=== PATIENT | female | born 1930 | race Caucasian/White ===

== ENCOUNTER → 2019-06-11 | Outpatient (CLI) | payer MEDICARE, BC ==
[2019-06-12 16:23] LABS: Appearance,Urine Turbid (Clear); Bacteria,Urine Moderate /hpf; Bilirubin,Urine Negative (Negative); Blood,Urine Trace (Negative); Color,Urine Yellow; Glucose,Urine (UA) Negative (Negative); Hyaline Casts,Urine 37 /lpf (0-2); Ketones,Urine Negative (Negative); Leukocyte Esterase,Urine Large (Negative); Mucus,Urine Occasional /hpf; Nitrite,Urine Positive (Negative); Protein,Urine Trace (Negative); RBC,Urine 20 /hpf (0-5); Specific Gravity,Urine 1.016 (1.001-1.035); Urobilinogen,Urine <2.0 mg/dL (<2.0); WBC,Urine >182 /hpf (0-5)
== END | disposition home or self-care (01) ==
LOC: LABPAT 16:00
PROVIDERS: ATTEND Orthopaedic Surgery
DX: Z01.812 Encounter for preprocedural laboratory examination (principal); M16.12 Unilateral primary osteoarthritis, left hip
CPT/HCPCS: 36415; 80053; 81001; 85027; 85610; 85730; 86850; 86900; 86901; 87070

== ENCOUNTER → 2019-06-11 | Outpatient (CLI) | payer MEDICARE, BC ==
[2019-06-11 15:22] LABS: HCT 32.8 % (34.0-46.0); HGB 10.6 gm/dL (11.4-16.0); MCH 28.7 pg (25.0-35.0); MCHC 32.3 g/dL (31.0-37.0); MCV 88.7 fL (80.0-100.0); Mean Platelet Volume 7.9; Platelet Count 184 k/uL (150-450); RDW 14.4 % (11.5-15.5); WBC 4.4 k/uL (3.8-10.6)
[2019-06-11 15:31] LABS: Partial Thromboplastin Time 26.4 sec (22.0-30.0); Prothrombin Time 10.6 sec (9.0-12.0)
[2019-06-11 15:32] LABS: Albumin 4.3 g/dL (3.5-5.0); Calcium 9.5 mg/dL (8.4-10.2); Potassium 4.4 mmol/L (3.5-5.1); Total Bilirubin 0.4 mg/dL (0.2-1.3); Total Protein 7.2 g/dL (6.3-8.2)
== END | disposition home or self-care (01) ==
LOC: LABPAT 14:52
PROVIDERS: ATTEND Orthopaedic Surgery
DX: Z01.812 Encounter for preprocedural laboratory examination (principal)
CPT/HCPCS: 36415; 80053; 85027; 85610; 85730; 87070

== ENCOUNTER 2019-06-17 20:57 | Inpatient (IN) | payer MEDICARE, BC ==
[2019-06-17] MEDS ORDERED: SODIUM CHLORIDE 0.9% 500 ML IV STA (21:33)
[2019-06-17] MEDS ORDERED: ACETAMINOPHEN TAB 325 MG TAB PO PRN (21:38)
[2019-06-17] MEDS ORDERED: NALOXONE 0.4 MG/ML 1 ML VIAL IV PRN (21:38)
--- NOTE | 2019-06-17 21:38 | ED ---
General Adult HPI - General Chief complaint: Extremity Injury, Lower Stated complaint: Femur Fracture Time Seen by Provider: 06/17/19 21:01 Source: EMS Mode of arrival: EMS Limitations: no limitations - History of Present Illness Initial comments: Dictation was produced using [employer] dictation software. please excuse any grammatical, word or spelling errors. Chief Complaint: 88-year-old female transferred from [facility] for left hip fracture. History of Present Illness: It is an 80-year-old female presents with left femur fracture. Patient initially presented to the hospital. She states that earlier today she fell. She was reaching backwards to grab her walker when her walker fell causing her to fall on her left side. Patient was seen at [facility] where she had traumatic work performed. She had CT brain and C-spine showing no acute processes. Left femur fracture was identified on x-ray. Fracture was at the distal left femur. Patient is familiar to Dr. Laura because she was supposed to have an elective left hip replacement performed outpatient. The ROS documented in this emergency department record has been reviewed and confirmed by me. Those systems with pertinent positive or negative responses have been documented in the HPI. All other systems are other negative and/or n oncontributory. PHYSICAL EXAM: General Impression: Alert and oriented x3, not in acute distress HEENT: Normocephalic atraumatic, extra-ocular movements intact, pupils equal and reactive to light bilaterally, mucous membranes moist. Cardiovascular: Heart regular rate and rhythm, S1&S2 audible, no murmurs, rubs or gallops Chest: Lungs clear to auscultation bilaterally, no rhonchi, no wheeze, no rales Abdomen: Bowel sounds present, abdomen soft, non-tender, non-distended, no organomegaly Musculoskeletal: Pulses present and equal in all extremities, no peripheral edema, patient and left lower extremity traction splint Motor: no focal deficits noted Neurological: CN II-XII grossly intact, no focal motor or sensory deficits noted Skin: Intact with no visualized rashes Psych: Normal affect and mood ED course: 88-year-old female transferred from [facility] for left lower extremity fracture. Vital signs upon arrival are within acceptable limits. Patient case was discussed between Dr. Morrell and Dr. Rod who was on-call for orthopedic surgery. He is aware patient prior to transfer. Patient evaluated bedside seemed to be in stable medical condition. Patient placed in knee immobilizer per request by orthopedic surgery. She'll be admitted to orthopedic surgery with medicine on consult. - Related Data Home Medications Medication Instructions Recorded Confirmed traMADol HCl [Ultram] 50 mg PO BID PRN 06/12/19 06/17/19 ALPRAZolam [Xanax] 0.25 mg PO BID PRN 06/13/19 06/17/19 Citalopram Hydrobromide [CeleXA] 20 mg PO QAM 06/13/19 06/17/19 Gabapentin [Neurontin] 300 mg PO QAM 06/13/19 06/17/19 Meloxicam [Mobic] 15 mg PO DAILY 06/13/19 06/17/19 Omeprazole 20 mg PO QAM 06/13/19 06/17/19 Retinavites Supplement 1 tab PO DAILY 06/13/19 06/17/19 busPIRone HCL 5 mg PO QAM 06/13/19 06/17/19 Propylene Glycol/Peg 400/Pf 1 drop BOTH EYES HS 06/15/19 06/17/19 [Systane 0.3-0.4% Eye Drops] Allergies Allergy/AdvReac Type Severity Reaction Status Date / Time No Known Allergies Allergy Verified 06/17/19 21:19 Review of Systems ROS Statement: Those systems with pertinent positive or pertinent negative responses have been documented in the HPI. ROS Other: All systems not noted in ROS Statement are negative. Past Medical History Past Medical History: GERD/Reflux, Hyperlipidemia History of Any Multi-Drug Resistant Organisms: None Reported Past Surgical History: Appendectomy, Back Surgery, Tonsillectomy Past Psychological History: Anxiety Smoking Status: Never smoker Past Alcohol Use History: None Reported Past Drug Use History: None Reported General Exam Limitations: no limitations Course Vital Signs 06/17/19 21:02 Temperature 99 F Pulse Rate 92 Respiratory 16 Rate Blood Pressure 94/84 O2 Sat by Pulse 92 L Oximetry Disposition Clinical Impression: Femur fracture, left Disposition: ADMITTED IP TO THIS HOSP Condition: Fair Referrals: Johnathan Kirk MD [Primary Care Provider] - 1-2 days Decision Time: 21:38
[2019-06-17] MEDS ORDERED: MORPHINE SULFATE 2 MG/ML SYRINGE IVP STA (22:28)
[2019-06-17] MEDS: SODIUM CHLORIDE 0.9% 1,000 ML IV SCH (22:28)
[2019-06-18] MEDS: MORPHINE SULFATE 4 MG/ML SYRINGE IV PRN ×2 (02:20→05:45)
[2019-06-18] MEDS ORDERED: ONDANSETRON 4 MG/2 ML VIAL IVP PRN (08:57)
[2019-06-18] MEDS ORDERED: HYDROmorphone 1 MG/ML 1 ML SYRINGE IVP PRN (08:57)
[2019-06-18] MEDS ORDERED: HYDROmorphone 0.5 MG/0.5 ML SYRINGE IVP PRN (08:57)
[2019-06-18] MEDS ORDERED: NALOXONE 0.4 MG/ML 1 ML VIAL IV PRN (08:57)
[2019-06-18] MEDS ORDERED: PANTOPRAZOLE 40 MG/10 ML VIAL IV SCH (09:00)
[2019-06-18] MEDS ORDERED: ALPRAZolam 0.25 MG TAB PO PRN (09:11)
--- NOTE | 2019-06-18 09:13 | P.HPOR ---
History of Present Illness H&P Date: 06/18/19 This is an 88-year-old female who had a fall on 06/17/2019 and sustained a fracture of the left distal femur. Patient is seen and evaluated at bedside with Dr. Shay Laura. Patient was transferred to [facility] from [facility] for further management. Patient is a known patient to Dr. Shay Laura and was scheduled for left total hip arthroplasty on 06/19/2019. Patient's past medical history is significant for GERD and hyperlipidemia. Patient denies any fever/chills, numbness, weakness, tingling, abdominal pain, shortness of breath or chest pain. Review of Systems See HPI. 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 Past Anesthesia/Blood Transfusion Reactions: No Reported Reaction Past Psychological History: Anxiety Smoking Status: Never smoker Past Alcohol Use History: None Reported Past Drug Use History: None Reported Medications and Allergies Home Medications Medication Instructions Recorded Confirmed Type traMADol HCl [Ultram] 50 mg PO BID PRN 06/12/19 06/17/19 History ALPRAZolam [Xanax] 0.25 mg PO BID PRN 06/13/19 06/17/19 History Citalopram Hydrobromide [CeleXA] 20 mg PO QAM 06/13/19 06/17/19 History Gabapentin [Neurontin] 300 mg PO QAM 06/13/19 06/17/19 History Meloxicam [Mobic] 15 mg PO DAILY 06/13/19 06/17/19 History Omeprazole 20 mg PO QAM 06/13/19 06/17/19 History Retinavites Supplement 1 tab PO DAILY 06/13/19 06/17/19 History busPIRone HCL 5 mg PO QAM 06/13/19 06/17/19 History Propylene Glycol/Peg 400/Pf 1 drop BOTH EYES HS 06/15/19 06/17/19 History [Systane 0.3-0.4% Eye Drops] Allergies Allergy/AdvReac Type Severity Reaction Status Date / Time lorazepam [From Ativan] AdvReac Confusion Verified 06/18/19 05:18 Physical Examination On exam patient is resting comfortably in bed in no acute distress. There is swelling over the left knee. Skin is intact. The left lower extremity is warm and well perfused. Patient has good left foot and ankle motion. Sensation intact. Neurovascular status and circulatory status are intact. Results X-rays of the left knee show comminuted distal femur fracture. Assessment and Plan Assessment: GERD Hyperlipidemia (1) Closed fracture of left distal femur Current Visit: Yes Status: Acute Code(s): S72.402A - UNSP FRACTURE OF LOWER END OF LEFT FEMUR, INIT FOR CLOS FX SNOMED Code(s): 192615079 Plan: 1. Nonweightbearing to the left lower extremity with a knee immobilizer. 2. Continue pain control. 3. NPO after midnight. 4. Appreciate input from medicine. 5. Planning for retrograde intramedullary rodding versus ORIF of the left distal femur on 06/19/2019 pending medical clearance and consent. Patient's family is present at bedside and all questions from the patient and her family are answered.
[2019-06-18] MEDS: HYDROmorphone 0.5 MG/0.5 ML SYRINGE IVP PRN ×3 (09:37→20:49)
[2019-06-18 09:48] LABS: Basophils # (A) 0.1 k/uL (0-0.2); Basophils % (A) 1 %; Eosinophils # (A) 0.1 k/uL (0-0.7); Eosinophils % (A) 1 %; HCT 26.4 % (34.0-46.0); Lymphocytes # (A) 1.5 k/uL (1.0-4.8); Lymphocytes % (A) 25 %; MCH 29.3 pg (25.0-35.0); MCV 88.9 fL (80.0-100.0); Mean Platelet Volume 7.8; Monocytes # (A) 0.5 k/uL (0-1.0); Monocytes % (A) 8 %; Neutrophils # (A) 3.9 k/uL (1.3-7.7); Neutrophils % (A) 63 %; Platelet Count 208 k/uL (150-450); RBC 2.97 m/uL (3.80-5.40); RDW 14.4 % (11.5-15.5); WBC 6.2 k/uL (3.8-10.6)
[2019-06-18 09:55] LABS: Prothrombin Time 11.1 sec (9.0-12.0)
[2019-06-18 09:56] LABS: HGB 8.7 gm/dL (11.4-16.0)
[2019-06-18 09:58] LABS: Albumin 3.7 g/dL (3.5-5.0); Calcium 8.7 mg/dL (8.4-10.2); Potassium 4.4 mmol/L (3.5-5.1); Total Bilirubin 0.6 mg/dL (0.2-1.3); Total Protein 6.5 g/dL (6.3-8.2)
[2019-06-18] MEDS: SODIUM CHLORIDE 0.9% 1,000 ML IV SCH ×2 (10:43→16:52)
[2019-06-18] MEDS: DIAZEPAM 5 MG TAB PO PRN (16:34)
--- NOTE | 2019-06-18 16:34 | P.CONS ---
History of Present Illness - Reason for Consult Consult date: 06/18/19 Medical management Requesting physician: Sahy Laura - Chief Complaint Left femur pain - History of Present Illness History of presenting complaint: This is a very pleasant 88-year-old patient of Dr. Kirk. Also present in the room a patient's 2 daughters. Chronic stable medical conditions include GERD, anxiety, osteoarthritis, urinary incontinence. Patient does wear pad for the same. Patient took a fall at home and subsequently had a left femur fracture. Patient is having significant pain in the same. Has a immobilizer brace in place. Patient otherwise normally able to get from the hospital walker. There is no chest pain and no shortness of breath prior to that. Of course patient exercise tolerance is limited because she uses a walker. Denies any coronary artery disease. Awaiting surgery for the same tomorrow. Review of systems: GEN.: None EYES: None HEENT: None NECK: None RESPIRATORY: None CARDIOVASCULAR: None GASTROINTESTINAL: None GENITOURINARY: Urinary incontinence MUSCULOSKELETAL: Pain in many joints and left femur LYMPHATICS: None HEMATOLOGICAL: None PSYCHIATRY: None NEUROLOGICAL: Chronically uses a walker Past medical history, to include: GERD, anxiety, osteoarthritis, urinary incontinence, chronic gait dysfunction uses a walker Social history.: No smoking. No alcohol. Lives alone. Daughter lives across. Uses a walker. Physical examination: VITAL SIGNS: 99, 92, 16, 94.84, 92% room air on admission GENERAL: BMI 21.8, laying in bed, a bit uncomfortable. EYES: Pupils equal. Conjunctiva normal. HEENT: External appearance of nose and ears normal, oral cavity grossly normal. NECK: JVD not raised; masses not palpable. HEART: First and second heart sounds are normal; no edema. LUNGS: Respiratory rate normal; clear to auscultation. ABDOMEN: Soft, nontender, liver spleen not palpable, no masses palpable. PSYCH: Alert and oriented x3; mood and affect normal. NEUROLOGICAL: Cranial nerves grossly intact; no facial asymmetry, power and sensation grossly intact. LYMPHATICS: No lymph nodes palpable in the axilla and neck MUSCULOSKELETAL: Patient got a immobilizer brace on the left leg. Evidence of OA is a cane the hands Investigations: White count 6.2 hemoglobin 8.7 platelets 208 potassium 4.4 creatinine 0.92 Assessment: -Acute left femur fracture secondary to fall -GERD -Anxiety -Primary osteoarthritis -Chronic urinary stress incontinence -Chronic gait dysfunction uses a walker -Chronic normocytic anemia. Cause unknown Plan: Care was discussed with the patient and family members the bedside. Patient does have limited exercise tolerance. But does not have any cardiac or respiratory symptoms. No other symptoms and the suggestive of of any limiting cardiac cause. Given her age patient is a moderate risk from surgery. Family understands the same. We'll check it is EKG and a checks x-ray done. Otherwise patient is medically stable to proceed for surgery. We'll start Lovenox for DVT prophylaxis. Thank you Dr. 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 Past Anesthesia/Blood Transfusion Reactions: No Reported Reaction Past Psychological History: Anxiety Smoking Status: Never smoker Past Alcohol Use History: None Reported Past Drug Use History: None Reported Medications and Allergies Home Medications Medication Instructions Recorded Confirmed Type traMADol HCl [Ultram] 50 mg PO BID PRN 06/12/19 06/17/19 History ALPRAZolam [Xanax] 0.25 mg PO BID PRN 06/13/19 06/17/19 History Citalopram Hydrobromide [CeleXA] 20 mg PO QAM 06/13/19 06/17/19 History Gabapentin [Neurontin] 300 mg PO QAM 06/13/19 06/17/19 History Meloxicam [Mobic] 15 mg PO DAILY 06/13/19 06/17/19 History Omeprazole 20 mg PO QAM 06/13/19 06/17/19 History Retinavites Supplement 1 tab PO DAILY 06/13/19 06/17/19 History busPIRone HCL 5 mg PO QAM 06/13/19 06/17/19 History Propylene Glycol/Peg 400/Pf 1 drop BOTH EYES HS 06/15/19 06/17/19 History [Systane 0.3-0.4% Eye Drops] Allergies Allergy/AdvReac Type Severity Reaction Status Date / Time lorazepam [From Ativan] AdvReac Confusion Verified 06/18/19 05:18 Physical Exam Vitals: Vital Signs Temp Pulse Pulse Resp BP BP Pulse Ox 06/18/19 14:39 98.9 F 83 16 114/57 92 L 06/18/19 06:40 98.3 F 80 16 109/54 95 06/18/19 00:00 87 20 06/17/19 23:37 98.1 F 87 20 127/71 94 L 06/17/19 22:36 93 16 115/61 92 L 06/17/19 21:02 99 F 92 16 94/84 92 L Intake and Output 06/18/19 06/18/19 06/18/19 06:59 14:59 22:59 Intake Total 0 Output Total 500 300 Balance -500 -300 Intake: Oral 0 Output: Urine 500 300 Other: Voiding Method Indwelling Catheter Indwelling Catheter # Bowel Movements 0 Results CBC & Chem 7: 06/18/19 09:16 06/18/19 09:16 Labs: Abnormal Lab Results - Last 24 Hours (Table) 06/18/19 06/18/19 Range/Units 09:16 09:16 RBC 2.97 L (3.80-5.40) m/uL Hgb 8.7 L D (11.4-16.0) gm/dL Hct 26.4 L (34.0-46.0) % Sodium 135 L (137-145) mmol/L BUN 18 H (7-17) mg/dL Glucose 103 H (74-99) mg/dL
[2019-06-18] MEDS: ENOXAPARIN 40 MG/0.4 ML SYRINGE SQ SCH (16:43)
[2019-06-18] MEDS: CITALOPRAM HYDROBROMIDE 20 MG TAB PO SCH (16:43)
[2019-06-18] MEDS: GABAPENTIN 300 MG CAP PO SCH (16:43)
[2019-06-18] MEDS: MELOXICAM 7.5 MG TAB PO SCH (16:44)
[2019-06-18] MEDS: busPIRone HCl 5 MG TAB PO SCH (16:44)
[2019-06-18 18:00] LABS: Appearance,Urine Clear (Clear); Bilirubin,Urine Negative (Negative); Blood,Urine Negative (Negative); Color,Urine Yellow; Glucose,Urine (UA) Negative (Negative); Ketones,Urine Negative (Negative); Leukocyte Esterase,Urine Negative (Negative); Nitrite,Urine Negative (Negative); Protein,Urine Negative (Negative); Specific Gravity,Urine 1.018 (1.001-1.035); Urobilinogen,Urine <2.0 mg/dL (<2.0)
[2019-06-18] MEDS: ARTIFICIAL TEARS-HYPROMELLOSE DROPS 15 ML BTL BOTH EYES SCH (20:49)
[2019-06-18] MEDS: ALPRAZolam 0.25 MG TAB PO PRN (20:49)
--- NOTE | 2019-06-18 22:52 | XR ---
EXAMINATION: XR chest 1V portable DATE AND TIME: 06/18/2019 7:35 PM CLINICAL INDICATION: PHH; surgery TECHNIQUE: AP portable supine COMPARISON: None FINDINGS: The lungs are clear. The pleural spaces are negative. The cardiac silhouette is not enlarged. The skeletal structures and soft tissues are negative for acute findings. IMPRESSION: No acute process, supine chest radiograph.
[2019-06-19] MEDS: DIAZEPAM 5 MG TAB PO PRN ×2 (01:00→21:57)
[2019-06-19] MEDS: HYDROmorphone 0.5 MG/0.5 ML SYRINGE IVP PRN ×4 (03:12→20:33)
[2019-06-19 08:53] LABS: Basophils % (A) 1 %; Eosinophils # (A) 0.1 k/uL (0-0.7); Eosinophils % (A) 1 %; HCT 23.2 % (34.0-46.0); HGB 7.4 gm/dL (11.4-16.0); Lymphocytes # (A) 1.1 k/uL (1.0-4.8); Lymphocytes % (A) 18 %; MCH 28.2 pg (25.0-35.0); MCHC 31.8 g/dL (31.0-37.0); MCV 88.7 fL (80.0-100.0); Mean Platelet Volume 7.6; Monocytes # (A) 0.6 k/uL (0-1.0); Monocytes % (A) 9 %; Neutrophils # (A) 4.1 k/uL (1.3-7.7); Neutrophils % (A) 69 %; Platelet Count 172 k/uL (150-450); RBC 2.61 m/uL (3.80-5.40); RDW 14.3 % (11.5-15.5)
[2019-06-19] MEDS: PANTOPRAZOLE 40 MG TABLET PO SCH (09:42)
[2019-06-19] MEDS: GABAPENTIN 300 MG CAP PO SCH (09:43)
[2019-06-19] MEDS: busPIRone HCl 5 MG TAB PO SCH (09:43)
[2019-06-19] MEDS: CITALOPRAM HYDROBROMIDE 20 MG TAB PO SCH (09:43)
[2019-06-19] MEDS: MELOXICAM 7.5 MG TAB PO SCH (09:43)
[2019-06-19] MEDS: ENOXAPARIN 40 MG/0.4 ML SYRINGE SQ SCH (09:43)
[2019-06-19] MEDS: SODIUM CHLORIDE 0.9% 1,000 ML IV SCH ×2 (13:12→16:10)
[2019-06-19] MEDS ORDERED: MIDAZOLAM (PF) 2 MG/2 ML VIAL IVP ONE ×2 (13:26→13:37)
--- NOTE | 2019-06-19 13:51 | P.ANPRN ---
Procedure Note - Anesthesia - Nerve Block Performed Left Other (see comment) Single Time Out Performed: Yes (left femoral nerve block) Date of Procedure: 06/19/19 Procedure Start Time: 13:28 Procedure Stop Time: 13:35 Location of Patient Procedure: PreOp Indication: Acute Post-Operative Pain, Requested by physician Sedation Type: Sedate with meaningful contact maintained Preparation: Sterile Prep, Sterile Dressing Position: Supine Catheter: None Needle Types: Pajunk Needle Gauge: 20 Technique: Ultrasound Injectate: 0.5% Ropivacaine (see comment for volume) (30 ml)
[2019-06-19] MEDS ORDERED: BISACODYL 10 MG SUPP RECTAL PRN (13:52)
[2019-06-19] MEDS ORDERED: HYDROcodone/APAP 5-325MG 1 EACH TAB PO PRN ×2 (13:52)
[2019-06-19] MEDS ORDERED: MAGNESIUM HYDROXIDE 2,400 MG/10 ML CUP PO PRN (13:52)
[2019-06-19] MEDS ORDERED: NALOXONE 0.4 MG/ML 1 ML VIAL IV PRN (13:52)
[2019-06-19] MEDS ORDERED: NA PHOS,M-B/NA PHOS,DI-BA 133 ML ENEMA RECTAL PRN (13:52)
[2019-06-19] MEDS ORDERED: ONDANSETRON 4 MG/2 ML VIAL IVP ONE ×2 (13:57→16:10)
[2019-06-19] MEDS ORDERED: ROCURONIUM BROMIDE 10 MG/ML 10 ML VIAL IV ONE (14:08)
[2019-06-19] MEDS ORDERED: PHENYLEPHRINE-0.9% NACL SYG 1 MG/10 ML SYRINGE ONE (14:08)
[2019-06-19] MEDS ORDERED: LIDOCAINE 1% INJ 10MG/ML (20 ML MDV) ONE (14:08)
[2019-06-19] MEDS ORDERED: KETAMINE 10 MG/ML 20 ML VIAL ONE (14:08)
[2019-06-19] MEDS ORDERED: NEOSTIGMINE 1 MG/ML 10 ML VIAL ONE (14:08)
[2019-06-19] MEDS ORDERED: PROPOFOL 10 MG/ML 20 ML VIAL IV ONE (14:08)
[2019-06-19] MEDS ORDERED: SUCCINYLCHOLINE CHLORIDE 100 MG/5 ML SYR IV ONE (14:08)
[2019-06-19] MEDS ORDERED: fentaNYL (PF) 50 MCG/ML 2 ML AMP ONE (14:08)
[2019-06-19] MEDS ORDERED: GLYCOPYRROLATE 0.2 MG/ML 2 ML VIAL ONE (14:08)
[2019-06-19] MEDS ORDERED: IV FLUID CONTINUATION 1,000 ML IV ONE (14:13)
[2019-06-19] MEDS ORDERED: SODIUM CHLORIDE 0.9% 100 ML with ceFAZolin 2,000 MG IV ONE ×2 (14:30)
[2019-06-19] MEDS ORDERED: LACTATED RINGERS 1,000 ML IV ONE (15:42)
--- NOTE | 2019-06-19 15:52 | P.OP ---
Date of Procedure: 06/19/19 Preoperative Diagnosis: Comminuted fracture left femur Postoperative Diagnosis: Comminuted fracture left femur Procedure(s) Performed: Closed retrograde intramedullary rodding left femur Implants: [employer] retrograde femoral nail 13 mm x 36 cm [employer] LP screw 5 mm x 60 mm, 5 mm x 30 mm, 5 mm x 75 mm, and 5 mm x 67.5 mm Anesthesia: spinal Surgeon: Shay Laura Sole Stainer #1: Obdulia Reyes Estimated Blood Loss (ml): 100 Pathology: none sent Condition: stable Disposition: PACU Indications for Procedure: This is an 88-year-old female that was scheduled to have a elective total of arthroplasty performed today. Over the weekend she slipped and fell and sustained a fracture of the left femur. She was admitted to the hospital and after discussing the surgical and nonsurgical treatment options with her and her family at length recommended a retrograde intramedullary rodding of her femur possible ORIF. Informed consent was obtained Operative Findings: The operative findings are consistent with a severely comminuted fracture of the left femur Description of Procedure: The patient was seen and evaluated in the preoperative area. The consent was reviewed and the operative site was marked with a skin marker. Patient was then brought to the operating room and given 2 g of Ancef by anesthesia. A spinal anesthetic was then performed by the anesthesia department. The right lower extremity and prepped and draped in usual sterile fashion. A universal timeout was then performed which confirmed the patient's name, surgical site, ALLERGIES, and consent. The procedure began by using fluoroscopy to perform a close reduction of the femur fracture. This reduction was then held with the aid of a triangle in traction. Next the starting point of the soren was located in the intracondylar notch of the distal femur. This was confirmed with both AP and lateral fluoroscopic views. A skin incision was made midline in the patellar tendon. A guidepin was then used to create the starting point of the soren and this was confirmed with fluoroscopy. The distal femur was then opened with the appropriate drill over the guidewire. The guidewire was then removed. A ball- tipped guidewire was then inserted in the insertion site and passed proximally past the fracture site into the proximal fragment. This was confirmed with both AP and lateral fluoroscopic x-rays. Next, sequential reaming of the tibial canal was then performed with flexible reamers to 1-1/2 mm over the size of the soren. After reaming was finished, the guidewire was then measured to pick the correct length for the soren. The soren was then inserted over the guidewire to the appropriate depth, and the guidewire was then removed. The fracture as well as the placement of the soren was then confirmed with both AP and lateral fluoroscopic views. Next, 3 distal locking screws then placed using the targeting guide. Next, 1 proximal locking was then placed using a freehand technique with fluoroscopy. After all the screws been placed, and the targeting guide removed, final fluoroscopic x-rays confirmed reduction of the fracture as well as excellent placement of the soren and screws. The wounds were then irrigated with antibiotic solution. Patellar tendon was closed with #1 Vicryl, followed by 2-0 Vicryl and matthew for the skin. The rest of the small stab incisions for the screws were closed with 2-0 Vicryl and matthew for the skin. Sterile dressings were then applied. The patient was then transferred to the recovery room in stable condition. The visitor service assistant LINDSEY Del Valle was required due the complexity of the surgery and the need for skilled auction assistant.
[2019-06-19] MEDS ORDERED: HYDROmorphone 1 MG/ML 1 ML SYRINGE IVP ONE ×2 (16:15→16:33)
[2019-06-19] MEDS ORDERED: PROMETHAZINE INJ 25 MG/ML 1 ML VIAL IVPB ONE (16:29)
--- NOTE | 2019-06-19 17:53 | FL ---
Fluoroscopy INDICATION: Pain FINDINGS: Fluoroscopy time: 2 minutes 37 seconds. Images obtained: 6. IMPRESSIONS: 1. Documentation of fluoroscopy.
--- NOTE | 2019-06-19 18:13 | XR ---
PROCEDURE: XR Femur LT 1 View - 2V DATE AND TIME: 06/19/2019 5:40 PM CLINICAL INDICATION: PHH; post op TECHNIQUE: 2 AP views from the hip to the knee COMPARISON: None FINDINGS: Intramedullary soren is in anatomic positioning and alignment, with postprocedural changes no conchis. No unexpected findings. IMPRESSION: Left femur postoperative 2 views
[2019-06-19] MEDS: ALPRAZolam 0.25 MG TAB PO PRN (21:57)
[2019-06-19] MEDS: SENNOSIDES-DOCUSATE SODIUM 1 EACH TAB PO SCH ×2 (21:58→21:59)
[2019-06-19] MEDS: ARTIFICIAL TEARS-HYPROMELLOSE DROPS 15 ML BTL BOTH EYES SCH (21:59)
--- NOTE | 2019-06-19 23:19 | P.PN ---
Progress Note - Text Progress Note Date: 06/19/19 - Chief Complaint Left femur pain Interval history: This is a very pleasant 88-year-old patient of Dr. Kirk. Also present in the room a patient's 2 daughters. Chronic stable medical conditions include GERD, anxiety, osteoarthritis, urinary incontinence. Patient does wear pad for the same. Patient took a fall at home and subsequently had a left femur fracture. Patient is having significant pain in the same. Has a immobilizer brace in place. Patient otherwise normally able to get from the hospital walker. There is no chest pain and no shortness of breath prior to that. Of course patient exercise tolerance is limited because she uses a walker. Denies any coronary artery disease. Awaiting surgery for the same tomorrow. Today-'s saw the patient in the morning. Family the bedside. Awaiting surgery. Pain at the fracture site. Review of systems: Was done for constitutional, cardiovascular, GI, pulmonary. relevant finding as above Current medications from today's electronic records are reviewed. Physical examination: VITAL SIGNS: 97.9, 94, 17, 1 50 x 52, 94% room air GENERAL: Laying in bed, awake EYES: Pupils equal. Conjunctiva normal. HEENT: External appearance of nose and ears normal, oral cavity grossly normal. NECK: JVD not raised; masses not palpable. HEART: First and second heart sounds are normal; no edema. LUNGS: Respiratory rate normal; clear to auscultation. ABDOMEN: Soft, nontender, liver spleen not palpable, no masses palpable. PSYCH: Alert and oriented x3; mood and affect normal. MUSCULOSKELETAL: Patient got a immobilizer brace on the left leg. Evidence of OA is a cane the hands Investigations: White count 6.2 hemoglobin 8.7 platelets 208 potassium 4.4 creatinine 0.92 Assessment: -Acute left femur fracture secondary to fall, pending surgery -GERD -Anxiety -Primary osteoarthritis -Chronic urinary stress incontinence -Chronic gait dysfunction uses a walker -Chronic normocytic anemia. Cause unknown Plan: Discussed with the patient and family the bedside. Pending surgery this afternoon. Continue current medications. Thank you Dr. Laura
[2019-06-20] MEDS: SODIUM CHLORIDE 0.9% 1,000 ML IV SCH ×3 (05:09→19:57)
--- NOTE | 2019-06-20 08:12 | P.PN ---
Subjective Progress Note Date: 06/20/19 This is an 88-year-old female who is status post closed retrograde intramedullary rodding of the left femur. This is postoperative day #1 and patient is seen and evaluated at bedside with Dr. Shay Laura. Patient complains of soreness in bilateral lower extremities today, including the right knee. Family is present at bedside. Patient denies any fever/chills, numbness, weakness, tingling, abdominal pain, shortness of breath or chest pain. Objective - Vital Signs Vital signs: Vital Signs Temp 97.7 F 06/20/19 07:00 Pulse 75 06/20/19 07:00 Resp 16 06/20/19 07:00 BP 120/57 06/20/19 07:00 Pulse Ox 93 L 06/20/19 07:00 Intake & Output 06/19/19 06/20/19 06/20/19 18:59 06:59 18:59 Intake Total 1460 480 Output Total 550 450 Balance 910 30 Intake: IV 1000 Oral 480 Blood Product 460 Rc As-1 Unit 310 [id number] Output: Urine 450 450 Estimated Blood Loss 100 Other: Voiding Method Indwelling Catheter Indwelling Catheter - Exam Vital signs are stable. Patient is in no acute distress and is alert and oriented 3. Calves are soft and nontender to palpation. Dressing is clean, dry, and intact to the left lower extremity. Patient has full foot and ankle motion without pain or difficulty bilaterally. Sensation is intact to bilateral lower extremities. Dorsalis pedis pulse is 2+. Bilateral lower extremities are warm and well perfused. There is mild tenderness to palpation over the right knee. Patient has limited range of motion of the right knee due to pain. There is no swelling, erythema or ecchymosis. Neurovascular status and circulatory status are intact to bilateral lower extremities. - Labs CBC & Chem 7: 06/19/19 08:26 06/18/19 09:16 Labs: Abnormal Lab Results - Last 24 Hours (Table) 06/18/19 06/19/19 Range/Units 09:16 08:26 RBC 2.61 L (3.80-5.40) m/uL Hgb 7.4 L (11.4-16.0) gm/dL Hct 23.2 L (34.0-46.0) % Crossmatch See Detail Assessment and Plan Assessment: GERD Hyperlipidemia (1) Closed fracture of left distal femur Current Visit: Yes Status: Acute Code(s): S72.402A - UNSP FRACTURE OF LOWER END OF LEFT FEMUR, INIT FOR CLOS FX SNOMED Code(s): 915762618 Plan: 1. Nonweightbearing to the left lower extremity with a knee immobilizer. 2. Continue routine postoperative care and pain control. 3. An x-ray of the right knee is pending. 4. Appreciate input from medicine. 5. Xarelto for DVT prophylaxis. 6. Physical therapy for mobilization. 7. CBC is pending. Patient did receive 1 unit of red blood cells yesterday. 8. Anticipate discharge to ECF in the next 24-48 hours.
[2019-06-20 08:21] LABS: Basophils % (A) 0 %; Eosinophils % (A) 0 %; HCT 23.4 % (34.0-46.0); HGB 7.5 gm/dL (11.4-16.0); Lymphocytes % (A) 12 %; MCH 28.6 pg (25.0-35.0); MCHC 31.9 g/dL (31.0-37.0); MCV 89.6 fL (80.0-100.0); Mean Platelet Volume 8.1; Monocytes # (A) 0.6 k/uL (0-1.0); Monocytes % (A) 7 %; Neutrophils # (A) 6.5 k/uL (1.3-7.7); Neutrophils % (A) 80 %; Platelet Count 158 k/uL (150-450); RBC 2.61 m/uL (3.80-5.40); RDW 14.6 % (11.5-15.5); WBC 8.2 k/uL (3.8-10.6)
[2019-06-20] MEDS: PANTOPRAZOLE 40 MG TABLET PO SCH (08:57)
[2019-06-20] MEDS: busPIRone HCl 5 MG TAB PO SCH (08:57)
[2019-06-20] MEDS: CITALOPRAM HYDROBROMIDE 20 MG TAB PO SCH (08:58)
[2019-06-20] MEDS: GABAPENTIN 300 MG CAP PO SCH (08:58)
[2019-06-20] MEDS: MELOXICAM 7.5 MG TAB PO SCH (08:58)
[2019-06-20] MEDS: RIVAROXABAN 10 MG TAB PO SCH (08:59)
--- NOTE | 2019-06-20 09:50 | XR ---
EXAMINATION TYPE: XR knee limited RT DATE OF EXAM: 06/20/2019 CLINICAL HISTORY: Right knee pain TECHNIQUE: Frontal and lateral views of the right knee are obtained. COMPARISON: None. FINDINGS: There is diffuse osseous demineralization. There is no acute fracture/dislocation evident in right knee. The tri-compartment joint spaces appear aligned however very small superior patellar pole osteophyte is seen. 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 The over lying soft tissue appears unremarkable. IMPRESSION: There is no acute fracture or dislocation in the right knee.
[2019-06-20] MEDS: ARTIFICIAL TEARS-HYPROMELLOSE DROPS 15 ML BTL BOTH EYES SCH (20:19)
[2019-06-20] MEDS: HYDROmorphone 0.5 MG/0.5 ML SYRINGE IVP PRN (20:20)
[2019-06-20] MEDS: SENNOSIDES-DOCUSATE SODIUM 1 EACH TAB PO SCH (20:22)
[2019-06-20] MEDS: ALPRAZolam 0.25 MG TAB PO PRN (21:31)
[2019-06-20] MEDS: DIAZEPAM 5 MG TAB PO PRN (21:31)
--- NOTE | 2019-06-20 23:59 | P.PN ---
Progress Note - Text Progress Note Date: 06/20/19 - Chief Complaint Left femur pain Interval history: This is a very pleasant 88-year-old patient of Dr. Kirk. Also present in the room a patient's 2 daughters. Chronic stable medical conditions include GERD, anxiety, osteoarthritis, urinary incontinence. Patient does wear pad for the same. Patient took a fall at home and subsequently had a left femur fracture. Patient is having significant pain in the same. Has a immobilizer brace in place. Patient otherwise normally able to get from the hospital walker. There is no chest pain and no shortness of breath prior to that. Of course patient exercise tolerance is limited because she uses a walker. Denies any coronary artery disease. Closed retrograde IM rodding of the left femur was done on June 19 Today-'s laying in bed. Some pain is present. Tolerating a diet. Daughters are present. Review of systems: Was done for constitutional, cardiovascular, GI, pulmonary. Musculoskeletal relevant finding as above Active Medications Acetaminophen (Tylenol Tab) 650 mg PO Q6HR PRN PRN Reason: Mild Pain or Fever > 100.5 Hydrocodone Bitart/Acetaminophen ([place] 5-325) 1 each PO Q6HR PRN PRN Reason: Pain Scale 1 to 5 Hydrocodone Bitart/Acetaminophen ([place] 5-325) 2 each PO Q6HR PRN PRN Reason: Pain Scale 6 to 10 Alprazolam (Xanax) 0.25 mg PO BID PRN PRN Reason: Anxiety Last Admin: 06/20/19 21:31 Dose: 0.25 mg Documented by: Artificial Tears (Artificial Tear Drops) 1 drops BOTH EYES [facility] Last Admin: 06/20/19 20:19 Dose: 1 drops Documented by: Bisacodyl (Dulcolax) 10 mg RECTAL DAILY PRN PRN Reason: Constipation Buspirone HCl (Buspar) 5 mg PO QAM [facility] Last Admin: 06/20/19 08:57 Dose: 5 mg Documented by: Citalopram Hydrob[facility] ([facility]lexa) [facility] [place] Last Admin: 06/20/19 08:58 Dose: 20 mg Documented by: Diazepam (Valium) 2.5 mg PO Q8HR PRN PRN Reason: Mild Spasms Last Admin: 06/20/19 21:31 Dose: 2.5 mg Documented by: Gabapentin (Neurontin) 300 mg PO QAM [facility] Last Admin: 06/20/19 08:58 Dose: 300 mg Documented by: Hydromorphone HCl (Dilaudid) 0.25 mg IVP Q3HR PRN PRN Reason: Pain Scale 1 to 3 Hydromorphone HCl (Dilaudid) 1 mg IVP Q3HR PRN PRN Reason: Pain Scale 7 to 10 Hydromorphone HCl (Dilaudid) 0.5 mg IVP Q3HR PRN PRN Reason: Pain Scale 4 to 6 Last Admin: 06/20/19 20:20 Dose: 0.5 mg Documented by: Sodium Chloride (Saline 0.9%) 1,000 mls @ 50 mls/hr IV .Q20H [facility] Last Admin: 06/20/19 10:25 Dose: Not Given Documented by: Sodium Chloride (Saline 0.9%) 1,000 mls @ 65 mls/hr IV .[id number] [facility] Last Admin: 06/20/19 19:57 Dose: Not Given Documented by: Magnesium Hydroxide (Milk Of Magnesia) 2,400 mg PO DAILY PRN PRN Reason: Constipation Meloxicam (Mobic) 15 mg PO DAILY [facility] Last Admin: 06/20/19 08:58 Dose: 15 mg Documented by: Naloxone HCl (Narcan) 0.2 mg IV Q2M PRN PRN Reason: Opioid Reversal Ondansetron HCl (Zofran) 4 mg IVP Q24HR PRN PRN Reason: Nausea And Vomiting Last Admin: 06/20/19 13:51 Dose: 4 mg Documented by: Pantoprazole Sodium (Protonix) 40 mg PO AC-BRKFST [facility] Last Admin: 06/20/19 08:57 Dose: 40 mg Documented by: Rivaroxaban (Xarelto) 10 mg PO DAILY [facility] Stop: 07/02/19 09:01 Last Admin: 06/20/19 08:59 Dose: 10 mg Documented by: Senna/Docusate Sodium (Senokot-S) 2 each PO HS [facility] Last Admin: 06/20/19 20:22 Dose: 2 each Documented by: Sodium Biphosphate/Sodium Phosphate (Fleet Adult) 133 ml RECTAL DAILY PRN PRN Reason: Constipation Physical examination: VITAL SIGNS: 97.7, 75, 16, 120/57, 93% room air GENERAL: Laying in bed, awake, not in distress EYES: Pupils equal. Conjunctiva normal. HEENT: External appearance of nose and ears normal, oral cavity grossly normal. NECK: JVD not raised; masses not palpable. HEART: First and second heart sounds are normal; no edema. LUNGS: Respiratory rate normal; clear to auscultation. ABDOMEN: Soft, nontender, liver spleen not palpable, no masses palpable. PSYCH: Alert and oriented x3; mood and affect normal. MUSCULOSKELETAL: Patient got a immobilizer brace on the left leg. Investigations: White count 8.2 hemoglobin 7.5 Assessment: -Acute left femur fracture secondary to fall, followed by closed intramedullary rodding -GERD -Anxiety -Primary osteoarthritis -Chronic urinary stress incontinence -Chronic gait dysfunction uses a walker -Chronic normocytic anemia. Cause unknown Plan: Continue current medication. Patient requiring to the ECF. Discussed with daughter the bedside. Thank you Dr. Laura
[2019-06-21] MEDS: HYDROmorphone 0.5 MG/0.5 ML SYRINGE IVP PRN (04:18)
[2019-06-21] MEDS: SODIUM CHLORIDE 0.9% 1,000 ML IV SCH ×2 (04:32→10:15)
[2019-06-21 07:59] VITALS: BP 92/53; PULSE 81; RESP 16; TEMP 98.2
[2019-06-21] MEDS: GABAPENTIN 300 MG CAP PO SCH (08:17)
[2019-06-21] MEDS: MELOXICAM 7.5 MG TAB PO SCH (08:17)
[2019-06-21] MEDS: RIVAROXABAN 10 MG TAB PO SCH (08:17)
[2019-06-21] MEDS: CITALOPRAM HYDROBROMIDE 20 MG TAB PO SCH (08:17)
[2019-06-21] MEDS: PANTOPRAZOLE 40 MG TABLET PO SCH (08:18)
[2019-06-21] MEDS: busPIRone HCl 5 MG TAB PO SCH (08:18)
--- NOTE | 2019-06-21 08:22 | P.PN ---
Subjective Progress Note Date: 06/21/19 This is an 88-year-old female who is status post closed retrograde intramedullary rodding of the left femur. This is postoperative day #2 and patient is seen and evaluated at bedside. Patient states that she was able to get out of bed with physical therapy yesterday. Patient does complain of some soreness in the left leg this morning. Patient denies any new complaints or symptoms. Family is present at bedside. Patient denies any fever/chills, numbness, weakness, tingling, abdominal pain, shortness of breath or chest pain. Objective - Vital Signs Vital signs: Vital Signs Temp 98.2 F 06/21/19 07:00 Pulse 81 06/21/19 07:00 Resp 16 06/21/19 07:00 BP 92/53 06/21/19 07:00 Pulse Ox 96 06/21/19 07:00 Intake & Output 06/20/19 06/21/19 06/21/19 18:59 06:59 18:59 Intake Total 440 Output Total 1050 925 Balance -610 -925 Intake: Oral 440 Output: Urine 1050 925 Other: Voiding Method Indwelling Catheter Indwelling Catheter Indwelling Catheter # Bowel Movements 0 - Exam Vital signs are stable. Patient is in no acute distress and is alert and oriented 3. Calves are soft and nontender to palpation. Patient has full foot and ankle motion without pain or difficulty bilaterally. Sensation is intact to bilateral lower extremities. Dorsalis pedis pulse is 2+. Bilateral lower extremities are warm and well perfused. Neurovascular status and circulatory status are intact bilaterally. - Labs CBC & Chem 7: 06/20/19 07:02 06/18/19 09:16 Labs: Abnormal Lab Results - Last 24 Hours (Table) 06/20/19 Range/Units 07:02 RBC 2.61 L (3.80-5.40) m/uL Hgb 7.5 L (11.4-16.0) gm/dL Hct 23.4 L (34.0-46.0) % Assessment and Plan Assessment: GERD Hyperlipidemia (1) Closed fracture of left distal femur Current Visit: Yes Status: Acute Code(s): S72.402A - UNSP FRACTURE OF LOWER END OF LEFT FEMUR, INIT FOR CLOS FX SNOMED Code(s): 909561665 Plan: 1. Nonweightbearing to the left lower extremity with a knee immobilizer. 2. Continue routine postoperative care and pain control. 3. An x-ray of the right knee is negative for any fracture or dislocation. 4. Appreciate input from medicine. 5. Xarelto for DVT prophylaxis. 6. Physical therapy for mobilization. 7. Anticipate discharge to ECF in the next 24-48 hours.
--- NOTE | 2019-06-21 09:20 | P.DS ---
Providers Date of admission: 06/17/19 21:45 Expected date of discharge: 06/21/19 Attending physician: Shay Laura Consults: 06/17/19 22:43 Consult Physician Routine Consulting Provider: Humberto To Consult Reason/Comments: medical consult and clearance Do you want consulting provider notified?: Yes Primary care physician: Johnathan Kirk - Discharge Diagnosis(es) (1) Closed fracture of left distal femur Current Visit: Yes Status: Acute Hospital Course: This is a 88-year-old female who sustained a fracture of the left distal femur after a fall. The patient presented for evaluation in the emergency room and x- rays revealed a comminuted left distal femur fracture. After discussion and consideration patient elects to proceed with closed retrograde intramedullary rodding left femur. The patient is seen preoperatively by Dr. Laura and medically cleared for surgery by internal medicine. Patient is admitted to [facility] on 06/17/2019 and closed retrograde intramedullary rodding of the left femur is performed on 06/19/2019. The procedures performed without complication or sequelae. The patient is doing well postoperatively. Labs and vital signs are stable on day of discharge. On day of discharge patient's incisions are healing well. There is minimal erythema. There is minimal drainage noted at this time. There is minimal soft tissue swelling to the knee. Patient has full foot and ankle motion without difficulty or pain. Calf is soft and nontender to palpation. Neurovascular status to the left lower extremity is intact. Patient is discharged to rehab in good condition. Opioid start talking form is reviewed and signed at patient bedside. Please see med rec for accurate list of home medications. Patient Condition at Discharge: Fair Plan - Discharge Summary Discharge Rx Participant: No New Discharge Prescriptions: New Sennosides-Docusate Sodium [Senokot-S] 2 each PO HS #0 tab HYDROcodone/APAP 5-325MG [[place] 5-325] 1 - 2 tab PO Q6HR PRN #56 tab PRN Reason: Pain Sennosides [Senokot] 1 tab PO BID #60 tablet Rivaroxaban [Xarelto] 10 mg PO DAILY #30 tab Continue busPIRone HCL 5 mg PO QAM Citalopram Hydrobromide [CeleXA] 20 mg PO QAM Omeprazole 20 mg PO QAM Meloxicam [Mobic] 15 mg PO DAILY Retinavites Supplement 1 tab PO DAILY Propylene Glycol/Peg 400/Pf [Systane 0.3-0.4% Eye Drop] 1 drop BOTH EYES HS Gabapentin [Neurontin] 300 mg PO QAM #3 cap ALPRAZolam [Xanax] 0.25 mg PO BID PRN #6 tab PRN Reason: Anxiety No Action traMADol HCl [Ultram] 50 mg PO BID PRN PRN Reason: Pain Discharge Medication List traMADol HCl [Ultram] 50 mg PO BID PRN 06/12/19 [History] Citalopram Hydrobromide [CeleXA] 20 mg PO QAM 06/13/19 [History] Meloxicam [Mobic] 15 mg PO DAILY 06/13/19 [History] Omeprazole 20 mg PO QAM 06/13/19 [History] Retinavites Supplement 1 tab PO DAILY 06/13/19 [History] busPIRone HCL 5 mg PO QAM 06/13/19 [History] Propylene Glycol/Peg 400/Pf [Systane 0.3-0.4% Eye Drop] 1 drop BOTH EYES HS 06/15/19 [History] ALPRAZolam [Xanax] 0.25 mg PO BID PRN #6 tab 06/20/19 [Rx] Gabapentin [Neurontin] 300 mg PO QAM #3 cap 06/20/19 [Rx] Sennosides-Docusate Sodium [Senokot-S] 2 each PO HS #0 tab 06/20/19 [Rx] HYDROcodone/APAP 5-325MG [[place] 5-325] 1 - 2 tab PO Q6HR PRN #56 tab 06/21/19 [Rx] Rivaroxaban [Xarelto] 10 mg PO DAILY #30 tab 06/21/19 [Rx] Sennosides [Senokot] 1 tab PO BID #60 tablet 06/21/19 [Rx] Follow up Appointment(s)/Referral(s): Johnathan Kirk MD [Primary Care Provider] - 1-2 days Shay Laura DO [Doctor of Osteopathic Medicine] - 10 Days Activity/Diet/Wound Care/Special Instructions: Strictly nonweightbearing to the left lower extremity with knee immobilizer at all times. Daily dressing changes. Julissa to be removed in 10-14 days. Keep incisions clean and dry. May shower in 24-48 hours if no drainage from the incisions. Ice and elevate the left lower extremity. Please follow up with [facility] and call with any questions or concerns, . Discharge Disposition: TRANSFER TO SNF/ECF
[2019-06-21] MEDS: ALPRAZolam 0.25 MG TAB PO PRN (13:34)
--- NOTE | 2019-06-22 22:56 | P.PN ---
Progress Note - Text Progress Note Date: 06/21/19 - Chief Complaint Left femur pain Interval history: This is a very pleasant 88-year-old patient of Dr. Kirk. Also present in the room a patient's 2 daughters. Chronic stable medical conditions include GERD, anxiety, osteoarthritis, urinary incontinence. Patient does wear pad for the same. Patient took a fall at home and subsequently had a left femur fracture. Patient is having significant pain in the same. Has a immobilizer brace in place. Patient otherwise normally able to get from the hospital walker. There is no chest pain and no shortness of breath prior to that. Of course patient exercise tolerance is limited because she uses a walker. Denies any coronary artery disease. Closed retrograde IM rodding of left femur was done on June 19 Today-' stable. Pains controlled. Did work with therapy. No new issues. Tolerating a diet. No cardiac or probably symptoms. Review of systems: Was done for constitutional, cardiovascular, GI, pulmonary. Musculoskeletal relevant finding as above Medications are reviewed in electronic records from today's date Physical examination: VITAL SIGNS: 98.2, 81, 16, 92 x 53, 96% on 2 L GENERAL: Laying in bed, awake, not in distress EYES: Pupils equal. Conjunctiva normal. HEENT: External appearance of nose and ears normal, oral cavity grossly normal. NECK: JVD not raised; masses not palpable. HEART: First and second heart sounds are normal; no edema. LUNGS: Respiratory rate normal; clear to auscultation. ABDOMEN: Soft, nontender, liver spleen not palpable, no masses palpable. PSYCH: Alert and oriented x3; mood and affect normal. Investigations: White count 8.2 hemoglobin 7.5 Assessment: -Acute left femur fracture secondary to fall, followed by closed intramedullary rodding -GERD -Anxiety -Primary osteoarthritis -Chronic urinary stress incontinence -Chronic gait dysfunction uses a walker -Chronic normocytic anemia. Cause unknown Plan: Stable. Continue current medication treated for plan. Care was discussed Thank you Dr. Laura
== END 2019-06-21 13:45 | DRG 482 ==
LOC: EC 20:57 → 4SSUR 21:45
PROVIDERS: ADMIT Orthopaedic Surgery; ATTEND Orthopaedic Surgery
PROC: 0QSC06Z Reposition Left Lower Femur with Intramedullary Internal Fixation Device, Open Approach (ICD-10-PCS; principal; 2019-06-17)
DX: S72.402A Unspecified fracture of lower end of left femur, initial encounter for closed fracture (principal); D64.9 Anemia, unspecified; E78.5 Hyperlipidemia, unspecified; F41.9 Anxiety disorder, unspecified; K21.9 Gastro-esophageal reflux disease without esophagitis; M19.90 Unspecified osteoarthritis, unspecified site; N39.3 Stress incontinence (female) (male); W01.0XXA Fall on same level from slipping, tripping and stumbling without subsequent striking against object, initial encounter; Y92.009 Unspecified place in unspecified non-institutional (private) residence as the place of occurrence of the external cause; Z79.1 Long term (current) use of non-steroidal anti-inflammatories (NSAID); Z96.643 Presence of artificial hip joint, bilateral; Z60.2 Problems related to living alone; Z90.49 Acquired absence of other specified parts of digestive tract; R26.9 Unspecified abnormalities of gait and mobility; Z79.899 Other long term (current) drug therapy
CPT/HCPCS: 64447; 71045; 80053; 81003; 85025; 85610; 86850; 86900; 86901; 86920; 93005; 96374; 99285